=== PATIENT | male | born 1975 | race Caucasian/White ===

== ENCOUNTER 2020-01-25 18:58 | Emergency (ER) | payer OTHER, SELFPAY ==
[2020-01-25 19:29] VITALS: BP 135/80; PULSE 87; RESP 19; TEMP 36.9; O2SAT 98; BMI 35.2
--- NOTE | 2020-01-25 20:02 | HMH.EDUTC ---
[facility] [place] Impression: Encounter for laboratory testing for COVID-19 virus Disposition: Home, Self-Care Condition on Discharge: Good Instructions: Preventing the Spread of Coronavirus Discharge Instructions Additional Instructions: You was given handout for COVID make sure that you follow instructions to help prevent the spread of COVID Over the counter Tylenol for pain and fever Make sure that you are drinking plenty of fluids No work or being out in public until you have a negative test Follow up with Family Doctor if needed Straight to ER if any life threatening symptoms Call back to [facility] on Wednesday or Wednesday to see if your test results are back and the result Referrals: Kaveh Barker MD [Primary Care Provider] - As needed Forms: Work/School Release Time of Disposition: 20:05 Medical Decision Making - Rakesh Inquiry Pt receiving controlled substance: No Rakesh was queried for this patient: No Vital Signs: 01/25/20 19:29 Temperature 98.4 F Temperature Source Oral Pulse Rate [Right Brachial] 87 Respiratory Rate 19 Blood Pressure [Right Arm] 135/80 Blood Pressure Mean [Right Arm] 98 Blood Pressure Source [Right Arm] Automatic Cuff Blood Pressure Position [Right Arm] Sitting 02 Sat by Pulse Oximetry 98 Oxygen Delivery Method Room Air Orders (Tests/Meds): ORDERS Category Date Time Status SARS-CoV-2, [place] Stat Lab 01/25/20 19:30 [place] [facility] [place] - General Stated complaint: Wants COVID-19 test Time Seen by Provider: 01/25/20 20:02 Mode of Arrival: Ambulatory Source of Information: Patient Limitations: No Limitations Description of Symptoms (Recalled from Triage Doc. by RN): PATIENT C/O FATIGUE AND CHILLS. STATES HE HAS BEEN WORKING ALOT WHICH MAYBE CAUSING HIS SYMPTOMS, HOWEVER HIS GIRLFRIEND WANTS HIM TO BE TESTED FOR COVID HEENT Symptoms (Recalled from RN notes): No Resp Symptoms (Recalled from RN notes): No Skin Symptoms (Recalled from RN notes): No MS Symptoms (Recalled from RN notes): No Functional Status (Recalled from RN notes): WNL - History of Present Illness Provider Complaint: Patient states that he has been working alot of hours and has been having fatigue, body aches and chills States that he has not been exposed to COVID that he is aware of but family was concerned and wanted him to come in and get tested so he did - Related Data Home Medications Medication Instructions Recorded Confirmed PARoxetine HCL [Paroxetine HCl] 40 mg PO DAILY 10/16/18 01/25/20 lisinopriL [Lisinopril 20mg Tab] 20 mg PO DAILY 10/16/18 01/25/20 Allergies Allergy/AdvReac Type Severity Reaction Status Date / Time cephalexin [From Keflex] Allergy Verified 01/25/20 19:34 methylprednisolone Allergy Verified 01/25/20 19:34 - Worker's Comp Is this a Worker's Comp case?: No [facility] History - Hepatitis A Screen Drug use history?: No High risk sexual behaviors?: No History of sexually transmitted infection?: No Currently employed?: No Childcare worker?: No Do you have indoor plumbing?: Yes Do you have electricity?: Yes Attestation statement:: This patient has been screened for Hepatitis A risk factors. I have reviewed the patient's past medical history: Yes Laterality Cases: Bilateral: Tonsillectomy - Social History Alcohol Intake: never Occupational Status: other ROS Obtained: Yes All systems reviewed & no additional complaints, Yes Systems reviewed as appropriate & no additional complaints - Constitutional Constitutional: Reports system reviewed and no additional complaints, except as docu, Reports body ache, Reports chills, Reports fatigue, Denies fever(s), Denies headache(s) - ENT Ears, Nose, Mouth, and Throat: Reports system reviewed and no additional complaints, except as docu, Denies otalgia, Denies sinus pain, Denies sinus pressure, Denies sore throat - Cardiovascular Cardiovascular: Reports system reviewed and no additional complaints, except as Wisam lizarraga
[2020-01-25 20:15] VITALS: BP 135/80; PULSE 87; RESP 19; TEMP 36.9; O2SAT 98
[2020-01-27 09:09] LABS: Covid-19 Nasal PCR Sendout Lex NONE DETECTED
== END 2020-01-25 20:17 | disposition home or self-care (01) ==
PROVIDERS: Emergency Provider Nurse Practitioner; PCP Internal Medicine Adolescent Medicine
DX: Z03.818 Encounter for observation for suspected exposure to other biological agents ruled out (principal); R53.1 Weakness; I10 Essential (primary) hypertension; F33.1 Major depressive disorder, recurrent, moderate
CPT/HCPCS: 99201; U0004

== ENCOUNTER → 2020-08-24 10:18 | Outpatient (CLI) | payer OTHER, SELFPAY ==
[2020-08-24 12:10] LABS: Alanine Aminotransferase 45 U/L (12-78); Albumin Level 4.8 g/dl (3.5-5.0); Albumin/Globulin Ratio 1.4 (1.1-1.8); Alkaline Phosphatase 71 U/L (38-126); Anion Gap 14.7 mEq/L (5-15); Aspartate Amino Transferase 42 U/L (17-59); Bilirubin,Total 0.6 mg/dl (0.2-1.3); Blood Urea Nitrogen 19 mg/dl (9-20); Calcium 10.1 mg/dl (8.4-10.2); Carbon Dioxide 25 mmol/L (22.0-30.0); Chloride 103 mmol/L (98-107); Chol/HDL Ratio 3.7 (1-3.5); Cholesterol 209 mg/dl (140-200); Estimated Glomerular Filt Rate 92 ml/min (>60); GFR (African American) 111 ML/MIN (>60); Globulin 3.5 g/dL (1.3-3.2); Glucose 84 mg/dl (74-100); HDL Cholesterol 56 mg/dl (40-60); Potassium 4.7 mmoL/L (3.5-5.1); Sodium 138 mmol/L (136-145); Total Protein,Serum 8.3 g/dl (6.3-8.2); Triglycerides 93 mg/dl (30-150); VLDL Cholesterol 19 mg/dL (0-40)
[2020-08-24 12:22] LABS: Direct LDL Cholesterol 130.58 mg/dL (100-129)
[2020-08-24 12:28] LABS: 25-OH Vitamin D, Total 49.9 ng/mL (30-100)
[2020-08-24 13:51] LABS: Hemoglobin A1C 5.5 % (4.0-6.0)
== END ==
PROVIDERS: Visit Provider Nurse Practitioner Family
DX: I10 Essential (primary) hypertension (principal); R73.09 Other abnormal glucose; E55.9 Vitamin D deficiency, unspecified
CPT/HCPCS: 36415; 80053; 80061; 82306; 83036

== ENCOUNTER → 2020-09-03 07:17 | Outpatient (CLI) | payer OTHER, SELFPAY ==
--- NOTE | 2020-09-03 | CA_ITS ---
APPROVED REPORT Exam: Exercise Treadmill Technologist: Shantal Coy Ht: 5 ft 11 in Wt: 245 lbs BSA: 2.30 m2 HR: 65 bpm BP: 128/76 mmHg Indications: Shortness of Breath Medical History Medications: Lisinopril,,,,, Atorvastatin,,,,, PaROXETINE,,,,, Stress Test Details Test: Tre HR Resting HR: 74 bpm Max Heart Rate (APMHR): 176.742007 bpm Max HR Achieved: 148 bpm Target HR (85% APMHR): 149.956287 bpm % of APMHR: 84.09 Recovery HR: 101 bpm BP Resting BP: 128.0/76.0 mmHg Max BP: 184.0/76.0 mmHg Recovery BP: 161.0/84.0 mmHg ECG Resting ECG: Normal sinus rhythm, low voltage QRS Clinical Exercise duration: 09:01 min Highest Stage Achieved: Exercise capacity: 10.1 METs Stress ECG Conclusion Patient exercised 9:00 on Tre Protocol. Test stopped due to shortness of air, fatigue. Symptoms: Dyspnea. No chest pain. Arrhythmias/Ectopy: Rare occasional PVC ST-T Changes: Within normal ST response to exercise. Conclusion: Normal GXT. Myoview images reported separately. Test Summary REST . . . . . . . Sitting REST . . . . . . . Standing REST 03:41 0.0 0.0 74 . 128/ 76 . . Stage 1 01:00 10.0 1.7 103 . . . . Stage 1 02:00 10.0 1.7 109 . . . . Stage 1 03:00 10.0 1.7 116 . 165/ 78 . . Stage 2 01:00 12.0 2.5 120 . . . . Stage 2 02:00 12.0 2.5 129 . . . . Stage 2 03:00 12.0 2.5 132 . 184/ 76 . . Stage 3 01:00 14.0 3.4 137 . . . . Stage 3 . . . . . . . Myoview Injected Stage 3 02:00 14.0 3.4 140 . . . . Stage 3 03:00 14.0 3.4 147 . . . . Stage 4 00:01 16.0 4.2 147 . . . Stop exercise at 09:01 RECOVERY 01:00 0.0 0.0 139 . 174/ 70 . . RECOVERY 02:00 0.0 0.0 124 . 174/ 70 . . RECOVERY 03:00 0.0 0.0 113 . 157/ 71 . . RECOVERY 04:00 0.0 0.0 104 . 157/ 71 . . RECOVERY 05:00 0.0 0.0 100 . 161/ 84 . . RECOVERY 05:40 0.0 0.0 95 . 161/ 84 . . Electronically signed by : Nickolas Daly, 09/03/2020 20:56:19
--- NOTE | 2020-09-03 07:25 | NM_ITS ---
APPROVED REPORT Exam: Nuclear Stress Test Indication: SOB, HTN, High cholesterol, Family history Patient Location: Outpatient Stress Tech: Shantal Coy [place] Tech:Svitlana Werner, ARRT, RT (R)(N) Ht: 5 ft 11 in Wt: 245 lbs HR: 65 bpm BP: 128/76 mmHg BSA: 2.30 m2 BMI: 34.1 History: SOB, HTN, High cholesterol, Family history Procedure: Patient exercised on Tre protocol 9:00 minutes and sec, resting heart rate 65 bpm, resting blood pressure 128/76 mmHg, with exercise maximum heart rate achived was 148 bpm which is 84 % of the maximum predicted heart rate and blood pressure was 184/76 mmHg. Test was stopped due to SOA and fatigue. Patient denied any complaint of chest pain. Patient has Good exercise capacity, achieved 10.1 METs of workload on treadmill, the blood pressure response to exercise was Adequate. Electrocardiogram Resting electrocardiogram showed sinus rhythm, with exercise there is less than 1.[address] segment depression noted from the baseline EKG. The EKG portion of the exercise Myoview is nondiagnostic as patient did not achieve the target heart rate. Cardiac Stress and Resting SPECT Images: Cardiac Stress and Resting SPECT images were obtained using technetium 99m Myoview 29.8 mCi stress and 10.58 mCi at rest. Gated SPECT for analysis of segmental wall motion and calculation of the ejection fraction also done, prone images were also obtained. Cardiac stress and resting SPECT images show uniform myocardial activity without segmental perfusion abnormality, computer derived ejection fraction is 63% with no regional wall motion abnormality, right ventricle is normal size and contractility. Conclusion: 1. The EKG portion of the exercise Myoview is nondiagnostic as patient did not achieve the target heart rate, patient has good exercise capacity achieved 10.1 mets of workload on treadmill, the blood pressure response to exercise was adequate, there was no exercise-induced chest discomfort. 2. No scintigraphic evidence of reversible ischemia seen at this level of exercise, computer derived ejection fraction is 63% with no regional wall motion abnormality, right ventricle is normal size and contractility. Electronically signed by : Nickolas Daly, 09/03/2020 21:06:24
--- NOTE | 2020-09-03 09:27 | HMH.ITSHM ---
Current Home Medications as stated by this patient Deshaun Nash or patient intake representative. []ATORVASTATIN LISINOPRIL PAROXETINE
== END ==
PROVIDERS: PCP Internal Medicine Adolescent Medicine; Visit Provider Nurse Practitioner Family
DX: R06.02 Shortness of breath (principal)
CPT/HCPCS: 78452; 93017; A9502

== ENCOUNTER → 2021-07-16 13:51 | Outpatient (CLI) | payer OTHER, SELFPAY | PROVIDERS: PCP Internal Medicine Adolescent Medicine; Visit Provider Nurse Practitioner | DX: Z20.822 Contact with and (suspected) exposure to COVID-19 (principal) | CPT/HCPCS: C9803; U0003; U0005 ==

== ENCOUNTER → 2021-09-04 07:23 | Outpatient (CLI) | payer OTHER, SELFPAY ==
[2021-09-04 14:04] LABS: Alanine Aminotransferase 39 U/L (12-78); Albumin Level 4.6 g/dl (3.5-5.0); Albumin/Globulin Ratio 1.5 (1.1-1.8); Alkaline Phosphatase 78 U/L (38-126); Anion Gap 15.6 mEq/L (5-15); Aspartate Amino Transferase 40 U/L (17-59); Basophils # 0.1 K/mm3 (0-0.2); Bilirubin,Total 0.5 mg/dl (0.2-1.3); Blood Urea Nitrogen 18 mg/dl (9-20); Calcium 9.4 mg/dl (8.4-10.2); Carbon Dioxide 26 mmol/L (22.0-30.0); Chloride 101 mmol/L (98-107); Chol/HDL Ratio 3.1 (1-3.5); Cholesterol 154 mg/dl (140-200); Eosinophils # 0.5 K/mm3 (0.0-0.4); Eosinophils % 6.5 % (0.1-12.0); Estimated Glomerular Filt Rate 81 ml/min (>60); GFR (African American) 98 ML/MIN (>60); Globulin 3.1 g/dL (1.3-3.2); Glucose 115 mg/dl (74-100); HDL Cholesterol 50 mg/dl (40-60); Hemoglobin 14.8 g/dL (14.1-18.0); Lymphocytes # 2.3 K/mm3 (0.7-4.5); Lymphocytes % 28.1 % (10-50); Mean Corpuscular HGB Conc 32.1 g/dL (31.8-35.4); Mean Corpuscular Hemoglobin 30.3 pg (27.0-31.2); Mean Corpuscular Volume 94.2 fl (80-94); Mean Platelet Volume 8.6 fl (7.4-10.4); Monocytes # 0.5 K/mm3 (0.1-1.0); Monocytes % 6.5 % (1.7-9.3); Neutrophils # 4.7 K/mm3 (1.8-7.8); Neutrophils % 57.9 % (37.0-80.0); Platelet Count 417 K/mm3 (142-424); Potassium 4.6 mmoL/L (3.5-5.1); Red Blood Count 4.88 M/mm3 (4.60-6.20); Red Cell Distribution Width 14.2 % (11.5-17.5); Sodium 138 mmol/L (136-145); Total Protein,Serum 7.7 g/dl (6.3-8.2); Triglycerides 80 mg/dl (30-150); VLDL Cholesterol 16 mg/dL (0-40); White Blood Count 8.1 K/mm3 (4.8-10.8)
[2021-09-04 14:15] LABS: Direct LDL Cholesterol 80.76 mg/dL (100-129)
[2021-09-04 14:20] LABS: 25-OH Vitamin D, Total 27.9 ng/mL (30-100)
[2021-09-05 11:20] LABS: Hemoglobin A1C 5.8 % (4.0-6.0)
== END ==
PROVIDERS: Internal Medicine Adolescent Medicine; Visit Provider Nurse Practitioner Family
DX: I10 Essential (primary) hypertension (principal); E78.5 Hyperlipidemia, unspecified; E55.9 Vitamin D deficiency, unspecified; K21.9 Gastro-esophageal reflux disease without esophagitis; R73.9 Hyperglycemia, unspecified
CPT/HCPCS: 36415; 80053; 80061; 82306; 83036; 85025

== ENCOUNTER → 2022-02-26 07:09 | Outpatient (CLI) | payer OTHER, SELFPAY ==
[2022-02-26 17:33] LABS: Alanine Aminotransferase 44 U/L (12-78); Albumin Level 4.1 g/dl (3.5-5.0); Albumin/Globulin Ratio 1.4 (1.1-1.8); Alkaline Phosphatase 76 U/L (38-126); Anion Gap 11.3 mEq/L (5-15); Aspartate Amino Transferase 45 U/L (17-59); Bilirubin,Total 0.2 mg/dl (0.2-1.3); Blood Urea Nitrogen 15 mg/dl (9-20); Calcium 9.4 mg/dl (8.4-10.2); Carbon Dioxide 26 mmol/L (22.0-30.0); Chloride 105 mmol/L (98-107); Chol/HDL Ratio 3.9 (1-3.5); Cholesterol 168 mg/dl (140-200); Estimated Glomerular Filt Rate 91 ml/min (>60); GFR (African American) 110 ML/MIN (>60); Glucose 104 mg/dl (74-100); HDL Cholesterol 43 mg/dl (40-60); Potassium 4.3 mmoL/L (3.5-5.1); Sodium 138 mmol/L (136-145); Total Protein,Serum 7.1 g/dl (6.3-8.2); Triglycerides 113 mg/dl (30-150); VLDL Cholesterol 23 mg/dL (0-40)
[2022-02-26 17:37] LABS: Hemoglobin A1C 5.7 % (4.0-6.0)
[2022-02-26 17:50] LABS: 25-OH Vitamin D, Total 61.3 ng/mL (30-100)
[2022-02-28 08:24] LABS: Direct LDL Cholesterol 96 mg/dL (100-129)
== END ==
PROVIDERS: PCP Nurse Practitioner Family; Visit Provider Nurse Practitioner Family
DX: I10 Essential (primary) hypertension (principal); E78.5 Hyperlipidemia, unspecified; K21.9 Gastro-esophageal reflux disease without esophagitis; E55.9 Vitamin D deficiency, unspecified; R73.9 Hyperglycemia, unspecified
CPT/HCPCS: 36415; 80053; 80061; 82306; 83036

== ENCOUNTER 2022-11-10 09:00 | Emergency (ER) | payer OTHER, SELFPAY ==
[2022-11-10 09:08] VITALS: BP 125/78; PULSE 76; RESP 16; TEMP 36.7; O2SAT 96; BMI 35.9
--- NOTE | 2022-11-10 09:15 | XR_ITS ---
FINAL REPORT CLINICAL HISTORY: pain FINDINGS: Left foot Three views were obtained. There is no acute fracture or dislocation. There are mild degenerative changes of the midfoot. Small calcaneal spurs are identified. There are chronic calcifications adjacent to the inferior calcaneal tuberosity. No soft tissue abnormality is identified. IMPRESSION: Degenerative and chronic appearing findings. Reviewed, Interpreted and Dictated by Cruz Menchaca III, MD Transcribed by Ana Lynn Authenticated and [facility]
--- NOTE | 2022-11-10 09:26 | EXP.UTC ---
Discharge Plan Disposition Patient Disposition: Home, Self-Care Condition: Good Prescriptions Prescriptions: New methylprednisolone 4 mg Tablets,Dose Pack 4 mg PO DIRECTED Qty: 21 0RF No Action lisinopril 20 MG tablet 20 mg PO DAILY paroxetine HCl 40 MG tablet 40 mg PO DAILY Referrals Follow up/Referrals: Kaveh Barker MD [Primary Care Provider] - See instructions Lashonda Llamas DPM [Staff Physician] - See instructions Activity Restrictions/Add. Instructions Additional Instructions/Restrictions: Rest the extremity, Elevate the extremity as tolerated while you are resting. Take the medication as directed. Follow up with Dr. Llamas (podiatry). I put in a referral but you need to call her office and schedule an appointment. Follow up with your regular doctor. GO TO THE ER FOR ANY WORSENING SYMPTOMS Clinical Impressions Clinical Impression: Pain of left heel Discharge ED Provider: Abilio Drummond [facility] General Stated complaint: LT heel pain Mode of Arrival: Ambulatory Source of Information: Patient Limitations: No Limitations Time Seen by Provider: 11/10/22 09:26 Description of Symptoms (Recalled from Triage Doc. by RN): pt c/o L heal pain x2 months. pt states it feels like a stone bruise. HEENT Symptoms (Recalled from RN notes): No Resp Symptoms (Recalled from RN notes): No Skin Symptoms (Recalled from RN notes): No MS Symptoms (Recalled from RN notes): Yes Functional Status (Recalled from RN notes): wnl History of Present Illness Provider Complaint: He c/o left heel pain for the past 2 months. He denies any known injury. He is not a diabetic. Related Data Home Medications Medication Instructions Recorded Confirmed lisinopril 20 mg tablet 20 mg PO DAILY Hypertension 10/16/18 01/25/20 paroxetine HCl 40 mg tablet 40 mg PO DAILY Depression 10/16/18 01/25/20 Previous Rx's Medication Instructions Recorded methylprednisolone 4 mg tablets in 4 mg PO DIRECTED #21 tabs 11/10/22 a dose pack Allergies Allergy/AdvReac Type Severity Reaction Status Date / Time cephalexin [From Keflex] Allergy Verified 11/10/22 09:22 methylprednisolone Allergy Verified 11/10/22 09:22 Worker's Comp Is this a Worker's Comp case?: No [facility] Disclaimer: The information contained in this section may have been updated after the patient was seen, as this information can be updated by other users. Social History Smoking Status: Never smoker alcohol intake: never current occupational status: other Travel in the last 8 weeks: None ROS Obtained: Yes All systems reviewed & no additional complaints except as documented Constitutional Constitutional: Denies chills and Denies fever(s) Eyes Eyes: Denies eye discharge ENT Ears, Nose, Mouth, and Throat: Denies dizziness, Denies otalgia and Denies sore throat Cardiovascular Cardiovascular: Denies chest pain Respiratory Respiratory: Denies shortness of breath, Denies chest congestion, Denies cough, Denies stridor and Denies wheezing Gastrointestinal Gastrointestingal: Denies nausea or vomiting Musculoskeletal Musculoskeletal: Reports as per HPI Integumentary/Breasts Skin/Breast: Denies rash Neurologic Neurologic: Denies dizziness and Denies paresthesias Allergic/Immunologic Allergic/Immunologic: Denies wheezing Physical Exam General General appearance: alert and in no apparent distress Head Head exam: atraumatic, normocephalic and normal inspection Eye Eye exam: Present normal appearance, PERRL and EOMI ENT ENT exam: Present normal exam, normal oropharynx, mucous membranes moist, TM's normal bilaterally and normal external ear exam Neck Neck exam: Present normal inspection, full ROM and trachea midline; Absent meningismus or lymphadenopathy Chest Chest inspection: Present normal inspection and symmetric chest wall rise; Absent tenderness Respiratory Respiratory e
[2022-11-10 10:21] VITALS: BP 125/78; PULSE 76; RESP 16; TEMP 36.7
== END 2022-11-10 10:22 | disposition home or self-care (01) ==
PROVIDERS: Emergency Provider Nurse Practitioner Family; PCP Internal Medicine Adolescent Medicine
DX: M79.672 Pain in left foot (principal)
CPT/HCPCS: 73630; 99212; 99214; G0463

== ENCOUNTER 2023-02-06 13:49 | Emergency (ER) | payer OTHER, SELFPAY ==
[2023-02-06 13:55] VITALS: BMI 33.9
--- NOTE | 2023-02-06 13:56 | XR_ITS ---
PROCEDURE INFORMATION: Exam: XR Right Foot Exam date and time: 02/06/2023 2:14 PM Age: 47 years old Clinical indication: Patient HX: Pain in bottom of right foot, no injury TECHNIQUE: Imaging protocol: Radiologic exam of the right foot. Views: 3 or more views. COMPARISON: No relevant prior studies available. FINDINGS: Bones/joints: Normal. Soft tissues: Normal. IMPRESSION: No acute findings.
--- NOTE | 2023-02-06 14:03 | EXP.UTC ---
Discharge Plan Disposition Patient Disposition: Home, Self-Care Condition: Good Prescriptions Prescriptions: New naproxen 500 mg tablet 500 mg PO BID PRN (Reason: foot pain) Qty: 20 0RF No Action lisinopril 20 MG tablet 20 mg PO DAILY paroxetine HCl 40 MG tablet 40 mg PO DAILY omeprazole 20 mg capsule,delayed release(DR/EC) 20 mg PO DAILY Patient Comments: TAKE 1 CAPSULE BY MOUTH ONCE DAILY Referrals Follow up/Referrals: Kaveh Barker MD [Primary Care Provider] - See instructions Lashonda Llamas DPM [Staff Physician] - See instructions Activity Restrictions/Add. Instructions Additional Instructions/Restrictions: Rest the extremity, Elevate the extremity as tolerated while you are resting. Take the medication as directed. Follow up with Dr. Llamas (podiatry). Sometimes there can be fractures that don't show up well on the first set of x-rays. So, you should follow up if you continue to have symptoms. I put in a referral but you need to call her office and schedule an appointment. Follow up with your regular doctor. GO TO THE ER FOR ANY WORSENING SYMPTOMS Clinical Impressions Clinical Impression: Pain of right heel Instructions Patient Instructions: DI for Foot Pain, Naproxen Discharge ED Provider: Abilio Drummond [facility] [place] HPI General Stated complaint: right foot pain Time Seen by Provider: 02/06/23 14:03 History of Present Illness Provider Complaint: He states that he has had right heel pain for the past 1 week. He denies any injury. He states that bearing weight on it makes it worse. Related Data Home Medications Medication Instructions Recorded Confirmed lisinopril 20 mg tablet 20 mg PO DAILY Hypertension 10/16/18 02/06/23 paroxetine HCl 40 mg tablet 40 mg PO DAILY Depression 10/16/18 02/06/23 omeprazole 20 mg capsule,delayed 20 mg PO DAILY GERD 02/06/23 02/06/23 release Previous Rx's Medication Instructions Recorded naproxen 500 mg tablet 500 mg PO BID PRN foot pain #20 02/06/23 tabs Allergies Allergy/AdvReac Type Severity Reaction Status Date / Time cephalexin [From Keflex] Allergy Verified 11/10/22 09:22 methylprednisolone Allergy Verified 11/10/22 09:[address] [facility] Disclaimer: The information contained in this section may have been updated after the patient was seen, as this information can be updated by other users. Medical History (Updated 02/06/23 @ 14:46 by Abilio Drummond APRN) Anxiety Hypertension Kidney stones Kidney stones Social History (Updated 11/10/22 @ 11:04 by Abilio Drummond APRN) Smoking Status: Never smoker alcohol intake: never current occupational status: other Travel in the last 8 weeks: None ROS Obtained: Yes All systems reviewed & no additional complaints except as documented Constitutional Constitutional: Denies chills and Denies fever(s) Eyes Eyes: Denies eye discharge ENT Ears, Nose, Mouth, and Throat: Denies dizziness, Denies otalgia and Denies sore throat Cardiovascular Cardiovascular: Denies chest pain Respiratory Respiratory: Denies shortness of breath, Denies chest congestion, Denies cough, Denies stridor and Denies wheezing Gastrointestinal Gastrointestingal: Denies nausea or vomiting Musculoskeletal Musculoskeletal: Reports as per HPI Integumentary/Breasts Skin/Breast: Denies rash Neurologic Neurologic: Denies dizziness and Denies paresthesias Allergic/Immunologic Allergic/Immunologic: Denies wheezing Physical Exam General General appearance: alert and in no apparent distress Head Head exam: atraumatic, normocephalic and normal inspection Eye Eye exam: Present normal appearance, PERRL and EOMI ENT ENT exam: Present normal exam, normal oropharynx, mucous membranes moist, TM's normal bilaterally and normal external ear exam Neck Neck exam: Present normal inspection, full ROM and trachea midline; Absent meningismus or lymphadenopathy Chest Chest inspection: Present normal insp
[2023-02-06 14:05] VITALS: BP 130/68; PULSE 76; RESP 20; TEMP 36.7; O2SAT 97; BMI 36.6
[2023-02-06 14:51] VITALS: BP 130/68; PULSE 76; RESP 20; TEMP 36.7; O2SAT 97
== END 2023-02-06 14:52 | disposition home or self-care (01) ==
PROVIDERS: Emergency Provider Nurse Practitioner Family; PCP Internal Medicine Adolescent Medicine
DX: M79.671 Pain in right foot (principal); I10 Essential (primary) hypertension; F41.9 Anxiety disorder, unspecified
CPT/HCPCS: 73630; 99212; 99214; G0463